=== PATIENT | female | born 1995 | race Two or more races ===

== ENCOUNTER 2017-07-23 08:08 | Emergency (ER) | payer OTHER, BC ==
[~2017-07-23] VITALS: Ht 157.5 cm; Wt 89.8 kg
--- NOTE | 2017-07-23 08:44 | PHYS DOC ---
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 She states there is minimal bleeding. Her wound was cleaned and hemostatic. She was able to move her thumb and had good sensation. No other associated injuries. Review of Systems Review of Systems Constitutional: Denies fever or chills [] Eyes: Denies change in visual acuity, redness, or eye pain [] HENT: Denies nasal congestion or sore throat [] Respiratory: Denies cough or shortness of breath [] Cardiovascular: No additional information not addressed in HPI [] GI: Denies abdominal pain, nausea, vomiting, bloody stools or diarrhea [] : Denies dysuria or hematuria [] Musculoskeletal: Denies back pain or joint pain [] Integument: Denies rash Neurologic: Denies headache, focal weakness or sensory changes [] Endocrine: Denies polyuria or polydipsia [] All other systems were reviewed and found to be within normal limits, except as documented in this note. Family History Family History No pertinent family medical history was reported Current Medications Current Medications Current medications were reviewed Allergies Allergies Allergies Coded Allergies Type Severity Reaction Last Updated Verified No Known Drug Allergies 07/23/17 No Physical Exam Physical Exam Constitutional: Well developed, well nourished, no acute distress, non-toxic appearance. [] HENT: Normocephalic, atraumatic, Eyes: EOMI, conjunctiva normal, no discharge. [] Neck: Normal range of motion, no tenderness, supple, no stridor. [] Cardiovascular:Heart rate regular rhythm, Lungs & Thorax: Bilateral breath sounds clear to auscultation [] Abdomen: Bowel sounds normal, soft, no tenderness, no masses, no pulsatile masses. [] Skin: Warm, dry, no erythema, approximately 6 cm subcutaneous laceration on the lateral right thumb. Normal sensation. Normal movement. Back: No tenderness, no CVA tenderness. [] Extremities: No tenderness, no cyanosis, no clubbing, ROM intact, no edema. [] Neurologic: Alert and oriented X 3, normal motor function, normal sensory function, no focal deficits noted. [] Psychologic: Affect normal, judgement normal, mood normal. [] EKG EKG [] Radiology/Procedures Radiology/Procedures Indication: R thumb laceration Procedure: The patient was placed in the appropriate position and anesthesia around the laceration on the R thumb, Lido 1%. The area was then cleaned using copus sterile water and Chlorhexidine. The laceration was closed using 4-0 Ethilon, 7 sutures. The wound area was then dressed. Total repaired wound length: 6cm The patient tolerated the procedure Well. Course & Med Decision Making Course & Med Decision Making Pertinent Labs and Imaging studies reviewed. (See chart for details) [] Dragon Disclaimer Dragon Disclaimer This electronic medical record was generated, in whole or in part, using a voice recognition dictation system. Departure Departure: Impression: Primary Impression: Laceration of hand Disposition: HOME, SELF-CARE Condition: STABLE Referrals: PCP,UNKNOWN (PCP) Patient Instructions: Laceration Care, Adult Additional Instructions: Anastasia was seen in the emergency department for a laceration. No emergency medical condition was found on history or physical exam. Her wound was cleaned and repaired. She was advised to have her sutures removed in 7-10 days. She was advised to be seen as soon as possible if she develops signs or symptoms of infection. She is advised to clean her wound using soap and water and keep it covered. She is advised follow-up with her primary care doctor as needed for further management. Problem Qualifiers Primary Impression: Laceration of hand Encounter type: initial encounter Foreign body presence: without foreign body Laterality: right Qualified Codes: S61.411A - Laceration without foreign body of right hand, initial encounter ROBERT DENNIS MD Jul 23, 2017 08:44
[2017-07-23] MEDS ORDERED: LIDOCAINE 1% 50 ML VIAL. SQ ONE (09:00)
[2017-07-23] MEDS ORDERED: LIDOCAINE 1% PF 30 ML VIAL. IV ONE (09:00)
[2017-07-23] MEDS ORDERED: LIDOCAINE 1% PF 30 ML VIAL. SQ ONE (09:10)
[2017-07-23 09:30] VITALS: BP 115/71
== END 2017-07-23 09:40 | disposition home or self-care (01) ==
LOC: ER 08:08
DX: S61.011A Laceration without foreign body of right thumb without damage to nail, initial encounter (principal); W45.8XXA Other foreign body or object entering through skin, initial encounter; Y93.89 Activity, other specified; Y99.8 Other external cause status; Y92.89 Other specified places as the place of occurrence of the external cause
CPT/HCPCS: 12002; 99283; J2001

== ENCOUNTER 2019-09-02 15:49 | Emergency (ER) | payer BC, OTHER ==
[~2019-09-02] VITALS: Ht 157.5 cm; Wt 68.0 kg
[2019-09-02 15:56] VITALS: BP 126/64
[2019-09-02] MEDS ORDERED: silver sulfADIAZINE 1% CREAM 50GM JAR. TP ONE (16:00)
[2019-09-02] MEDS ORDERED: IBUPROFEN 600 MG TABLET. PO ONE (16:00)
--- NOTE | 2019-09-02 16:02 | PHYS DOC ---
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 Patient splashed hot water on left foot while at work. On exam, the patient has first-degree villanueva to dorsum of left midfoot and forefoot with small blister. Sensation intact. tetanus up-to-date.] Review of Systems Review of Systems Review symptoms as per history of present illness. All other review symptoms are negative. All other systems were reviewed and found to be within normal limits, except as documented in this note. Allergies Allergies Allergies Coded Allergies Type Severity Reaction Last Updated Verified No Known Drug Allergies 07/23/17 No Physical Exam Physical Exam Constitutional: Well developed, well nourished, no acute distress, non-toxic appearance. [] HENT: Normocephalic, atraumatic, bilateral external ears normal, oropharynx moist, no oral exudates, nose normal. [] Eyes: PERRLA, EOMI, conjunctiva normal, no discharge. [] Neck: Normal range of motion, no tenderness, supple, no stridor. [] Extremities: Left foot,first-degree villanueva to dorsum of left midfoot and forefoot with small blister. Sensation intact. Neurologic: Alert and oriented X 3, normal motor function, normal sensory function, no focal deficits noted. [] Psychologic: Affect normal, judgement normal, mood normal. [] EKG EKG [] Radiology/Procedures Radiology/Procedures [] Course & Med Decision Making Course & Med Decision Making Pertinent Labs and Imaging studies reviewed. (See chart for details) Less than 1% total body surface area skin burn to to left foot. Patient given Silvadene cream and ibuprofen. Okay to return to work with] Dragon Disclaimer Dragon Disclaimer This electronic medical record was generated, in whole or in part, using a voice recognition dictation system. Departure Departure: Impression: Primary Impression: First degree burn of left foot Disposition: 01 HOME, SELF-CARE Condition: STABLE Referrals: PCP,UNKNOWN (PCP) SKYE BELTRE DO Sep 02, 2019 16:02
== END 2019-09-02 16:38 | disposition home or self-care (01) ==
LOC: ER 15:49
DX: T25.122A Burn of first degree of left foot, initial encounter (principal); X12.XXXA Contact with other hot fluids, initial encounter; Y93.89 Activity, other specified; Y92.89 Other specified places as the place of occurrence of the external cause; Y99.8 Other external cause status
CPT/HCPCS: 99283